=== PATIENT | male | born 2000 | race Hispanic/Latino ===

== ENCOUNTER 2023-05-17 16:12 | Emergency (ER) | payer MEDICAID ==
[~2023-05-17] VITALS: Ht 162.6 cm; Wt 100.2 kg
[2023-05-17 16:44] LABS: BASOPHILS # (AUTO) 0.04 K/uL (0.00-0.20); BASOPHILS % (AUTO) 0.5 % (0.0-5.0); EOSINOPHILS # (AUTO) 0.01 K/uL (0.00-0.70); EOSINOPHILS % (AUTO) 0.1 % (0.0-8.0); HEMATOCRIT 45.7 % (42-54); IMMATURE GRANULOCYTE ABSOLUTE 0.01 K/uL (0-1); LYMPHOCYTES # (AUTO) 1.5 K/uL (1.0-4.8); LYMPHOCYTES % (AUTO) 17.3 % (21.0-51.0); MEAN CORPUSCULAR HEMOGLOBIN 30.5 pg (27.0-33.0); MEAN CORPUSCULAR HGB CONC 36.3 g/dL (32.0-36.0); MEAN CORPUSCULAR VOLUME 83.9 fL (80-100); MONOCYTES # (AUTO) 0.9 K/uL (0.1-1.0); MONOCYTES % (AUTO) 10.2 % (3.0-13.0); NEUTROPHILS # (AUTO) 6.1 K/uL (1.8-7.7); NEUTROPHILS % (AUTO) 71.8 % (40.0-77.0); PLATELET COUNT (AUTO) 199 K/uL (130-400); RED BLOOD CELL COUNT(AUTO) 5.45 MIL/uL (4.50-6.20); RED CELL DISTRIBUTION WIDTH 12.4 % (11.0-15.5); WHITE BLOOD COUNT (AUTO) 8.5 K/uL (4.8-10.8)
[2023-05-17 16:57] LABS: ALBUMIN 4.2 g/dL (3.5-5.0); BILIRUBIN,TOTAL 0.5 mg/dL (0.2-1.0); TOTAL PROTEIN, SERUM 8.6 g/dL (6.0-8.3)
[2023-05-17 17:00] LABS: POTASSIUM 2.9 mmol/L (3.5-5.1)
[2023-05-17 19:23] VITALS: BP 130/78; PULSE 84; RESP 16; O2SAT 98
[2023-05-17 19:36] LABS: APPEARANCE,URINE CLEAR (CLEAR); BILIRUBIN,URINE NEGATIVE (NEGATIVE); COLOR,URINE YELLOW (YELLOW); GLUCOSE, URINE (UA) NEGATIVE (NEGATIVE); KETONES,URINE 20 mg/dL (NEGATIVE); LEUKOCYTE ESTERASE ,URINE NEGATIVE Leu/uL (NEGATIVE); NITRATE,URINE NEGATIVE (NEGATIVE); OCCULT BLOOD,URINE MODERATE (NEGATIVE); PROTEIN,URINE 200 mg/dL (NEGATIVE); UROBILINOGEN,URINE 0.2 mg/dL (0.2-1.0)
[2023-05-17] MEDS: PANTOPRAZOLE 40 MG/VIAL IVP ONE (19:41)
[2023-05-17] MEDS: LACTATED RINGERS 1000ML 1,000 ML IV ONE (19:41)
[2023-05-17] MEDS: KETOROLAC 15MG/ML VIAL (15MG/ML) IV SCH (19:42)
[2023-05-17] MEDS: POTASSIUM BICARB/CIT AC 25 MEQ TABLET.EFF PO ONE (19:42)
[2023-05-17] MEDS: SUCRALFATE 1 GM TABLET PO SCH (19:42)
[2023-05-17 19:51] LABS: ADD UA MICROSCOPIC YES
[2023-05-17 19:52] LABS: BACTERIA,URINE RARE /HPF (None Seen); MUCUS,URINE MANY LPF (None Seen)
[2023-05-17] MEDS ORDERED: IBUP-2077 PO (21:17)
== END 2023-05-17 21:39 | disposition home or self-care (01) ==
LOC: EDH 16:12
DX: K80.20 Calculus of gallbladder without cholecystitis without obstruction (principal)
CPT/HCPCS: 99285; 96374; 76705; 71045; 96375; 80053; 83690; 85025; 81001; 36415; 74018; 93005; J7120; J1885; S0164; C9113